=== PATIENT | female | born 1985 | race Caucasian/White ===

== ENCOUNTER 2020-01-20 14:14 | Emergency (ER) | payer MEDICAID ==
--- NOTE | 2020-01-20 14:26 | ERPHSYRPT ---
- History of Present Illness Time Seen by Provider: 01/20/20 14:26 Source: patient Exam Limitations: no limitations Physician History: This is a right-handed 34-year-old white female who for 2 years has had intermittent bilateral wrist and hand cramping. What is different for her is that in the last several weeks she has had bilateral hand numbness digits 1 2 and 3. Patient denies any repetitive work of any kind. Patient denies any trauma. She is had no strokelike symptoms. Severity: mild Modifying Factors: Improves With: movement Associated Symptoms: denies symptoms Allergies/Adverse Reactions: No Known Drug Allergies Allergy (Unverified 01/20/20 14:34) Travel Risk - International Travel Have you traveled outside of the country in past 3 weeks: No - Coronavirus Screening Are you exhibiting any of the following symptoms?: No Close contact with a COVID-19 positive Pt in past 14-21 Days: No - Review of Systems Constitutional: No Symptoms Eyes: No Symptoms Ears, Nose, & Throat: No Symptoms Respiratory: No Symptoms Cardiac: No Symptoms Abdominal/Gastrointestinal: No Symptoms Genitourinary Symptoms: No Symptoms Musculoskeletal: No Injury Skin: No Symptoms Neurological: Other (Bilateral hand digits 1 2 and 3 numbness), No Gait Changes, No Headache Psychological: No Symptoms Endocrine: No Symptoms Hematologic/Lymphatic: No Symptoms Immunological/Allergic: No Symptoms All Other Systems: Reviewed and Negative - Past Medical History Pertinent Past Medical History: Yes Neurological History: No Pertinent History ENT History: No Pertinent History Cardiac History: No Pertinent History Respiratory History: No Pertinent History Endocrine Medical History: No Pertinent History Musculoskeletal History: No Pertinent History GI Medical History: No Pertinent History History: No Pertinent History Psycho-Social History: No Pertinent History Female Reproductive Disorders: No Pertinent History - Past Surgical History Neuro Surgical History: No Pertinent History Cardiac: No Pertinent History Respiratory: No Pertinent History Gastrointestinal: No Pertinent History Genitourinary: No Pertinent History Musculoskeletal: No Pertinent History Female Surgical History: No Pertinent History - Nursing Vital Signs Nursing Vital Signs: Initial Vital Signs Temperature 98.5 F 01/20/20 14:26 Pulse Rate 102 H 01/20/20 14:26 Respiratory Rate 18 01/20/20 14:26 Blood Pressure 123/90 01/20/20 14:26 O2 Sat by Pulse Oximetry 98 01/20/20 14:26 Pain Scale Pain Intensity 0 - Physical Exam General Appearance: no apparent distress, alert, anxiety Eye Exam: PERRL/EOMI, eyes nml inspection Ears, Nose, Throat Exam: normal ENT inspection, moist mucous membranes Neck Exam: normal inspection, non-tender, supple, full range of motion Respiratory Exam: normal breath sounds, lungs clear, airway intact, No chest tenderness, No respiratory distress Cardiovascular Exam: normal peripheral pulses Gastrointestinal/Abdomen Exam: No tenderness Pelvic Exam: not done Rectal Exam: not done Back Exam: normal inspection, normal range of motion, No CVA tenderness, No vertebral tenderness Extremity Exam: normal inspection, normal range of motion, pelvis stable Neurologic Exam: alert, oriented x 3, cooperative, wholesale representative II-XII nml as tested, normal mood/affect, nml cerebellar function, nml station & gait, sensation nml Skin Exam: normal color, warm, dry Lymphatic Exam: No adenopathy SpO2 Interpretation: normal O2 Delivery: Room Air Ordered Tests: Active Orders 24 hr Category Date Time Status BMP Stat Lab 01/20/20 14:30 Completed Erythrocyte Sedimentation Rate Stat Lab 01/20/20 14:30 Received MAGNESIUM Stat Lab 01/20/20 14:30 Completed Lab/Rad Data: Laboratory Result Diagrams 01/20/20 14:30 Laboratory Results 01/20/20 Range/Units 14:30 Sodium 141 (137-145) mmol/L Potassium 4.1 (3.5-5.1) mmol/L Chloride 108 H (98-107) mmol/L Carbon Dioxide 28 (22-30) mmol/L Anion Gap 9.1 (5-15) MEQ/L BUN 11 (7-17) mg/dL Creatinine 0.67 (0.52-1.04) mg/dL Estimated GFR > 60.0 ML/MIN Glucose 100 (74-106) mg/dL Calcium 9.4 (8.4-10.2) mg/dL Magnesium 2.1 (1.6-2.3) mg/dL - Progress Progress: unchanged, re-examined Counseled pt/family regarding: lab results, diagnosis, need for follow-up - Departure Departure Disposition: Home Clinical Impression: Bilateral hand numbness Condition: Stable Critical Care Time: No Additional Instructions: Take medication as prescribed. May add Tylenol to pain regimen. Follow-up with primary care physician for further management and evaluation. Prescriptions: Cyclobenzaprine HCl 10 mg [Cyclobenzaprine 10 MG] 10 mg PO TID #10 tablet Prednisone 10 mg [Deltasone 10 mg] 10 mg PO TID #12 tablet
[2020-01-20 14:33] VITALS: O2SAT 98
[2020-01-20 15:14] LABS: ANION GAP 9.1 MEQ/L (5-15); BLOOD UREA NITROGEN 11 mg/dL (7-17); CHLORIDE 108 mmol/L (98-107); Calcium 9.4 mg/dL (8.4-10.2); Carbon Dioxide 28 mmol/L (22-30); Creatinine 1 0.67 mg/dL (0.52-1.04); Glucose 100 mg/dL (74-106); MAGNESIUM 2.1 mg/dL (1.6-2.3); Potassium 4.1 mmol/L (3.5-5.1); SODIUM 141 mmol/L (137-145)
[2020-01-20 15:22] VITALS: BP 128/86; PULSE 84
== END 2020-01-20 15:47 | disposition home or self-care (01) ==
LOC: ED 14:14
DX: R20.0 Anesthesia of skin (principal)
CPT/HCPCS: 36000; 36415; 80048; 83735; 85652; 99284

== ENCOUNTER 2020-04-16 16:50 | Emergency (ER) | payer OTHER ==
[2020-04-16] MEDS ORDERED: TORAdol 30 mg Injection IM ONE (17:19)
--- NOTE | 2020-04-16 17:24 | ERPHSYRPT ---
- History of Present Illness Time Seen by Provider: 04/16/20 17:10 Source: patient Exam Limitations: no limitations Patient Subjective Stated Complaint: pt reports she fell in a hole earlier today. reports left ankle pain and swelling. denies any other injury or accident. pt reports she cannot take any narcotic medication. Triage Nursing Assessment: pt is aox3, pupils perrl, afebrile, resps easy and non labored, cap refill < 3 seconds, radial pulses strong and equal, pt skin pink warm dry. mild swelling noted to the distal left ankle, skin is intact. ROM sensation intact. pt ambulatory to cot with slow limping gait. Physician History: 35 years old female presented in the ER with chief complaint of left ankle pain and swelling after she accidentally stepped in a small hole and twisted her left ankle earlier today. Since then she is having gradually increasing sharp shooting moderate intensity pain which is aggravated with movements and ambulation. She can still walk on it. No injury anywhere else. Method of Injury: fell, twisted Occurred: this morning Quality: sharpness Severity of Pain-Max: moderate Severity of Pain-Current: moderate Lower Extremities Pain: ankle: left Modifying Factors: Improves With: immobilization, rest. Worsens With: movement Associated Symptoms: popping sensation Allergies/Adverse Reactions: No Known Drug Allergies Allergy (Verified 04/16/20 17:16) Hx Tetanus, Diphtheria Vaccination/Date Given: Yes Hx Influenza Vaccination/Date Given: No Hx Pneumococcal Vaccination/Date Given: No Immunizations Up to Date: Yes Travel Risk - International Travel Have you traveled outside of the country in past 3 weeks: No - Coronavirus Screening Are you exhibiting any of the following symptoms?: No Close contact with a COVID-19 positive Pt in past 14-21 Days: No - Review of Systems Constitutional: No Symptoms Ears, Nose, & Throat: No Symptoms Respiratory: No Symptoms Cardiac: No Symptoms Abdominal/Gastrointestinal: No Symptoms Musculoskeletal: Joint Pain, Joint Swelling Skin: No Symptoms Neurological: No Symptoms Psychological: No Symptoms Endocrine: No Symptoms Hematologic/Lymphatic: No Symptoms - Past Medical History Pertinent Past Medical History: Yes Neurological History: No Pertinent History ENT History: No Pertinent History Cardiac History: No Pertinent History Respiratory History: No Pertinent History Endocrine Medical History: No Pertinent History Musculoskeletal History: No Pertinent History GI Medical History: No Pertinent History History: No Pertinent History Psycho-Social History: No Pertinent History Female Reproductive Disorders: No Pertinent History - Past Surgical History Past Surgical History: Yes Neuro Surgical History: No Pertinent History Cardiac: No Pertinent History Respiratory: No Pertinent History Gastrointestinal: No Pertinent History Genitourinary: No Pertinent History Musculoskeletal: No Pertinent History Female Surgical History: Section Other Surgical History: c section x 4 - Social History Smoking Status: Current every day smoker Exposure to second hand smoke: No Drug Use: none Patient Lives Alone: No - Female History Hx Last Menstrual Period: 04/15/20 Hx Now: (UNKN) - Nursing Vital Signs Nursing Vital Signs: Initial Vital Signs Temperature 99.1 F 04/16/20 17:07 Pulse Rate 90 04/16/20 17:07 Respiratory Rate 20 04/16/20 17:07 Blood Pressure 145/95 04/16/20 17:07 O2 Sat by Pulse Oximetry 97 04/16/20 17:07 Pain Scale Pain Intensity 4 - Physical Exam General Appearance: no apparent distress, alert Neck Exam: normal inspection, full range of motion Cardiovascular/Respiratory Exam: normal breath sounds, regular rate/rhythm Back Exam: normal inspection Legs Exam: bilateral leg: non-tender, normal inspection, normal range of motion, no evidence of injury Knees Exam: bilateral knee: non-tender, normal inspection, normal range of motion, no evidence of injury Ankle Exam: right ankle: non-tender, normal inspection, normal range of motion, no evidence of injury, left ankle: bone tenderness (Lateral malleolus), limited range of motion, pain, soft tissue tenderness, swelling Foot Exam: bilateral foot: non-tender, normal inspection, normal range of motion, no evidence of injury Neuro/Tendon Exam: normal sensation, normal motor functions, normal tendon functions Mental Status Exam: alert, oriented x 3, cooperative Skin Exam: normal color SpO2 Interpretation: normal SpO2: 97 O2 Delivery: Room Air Ordered Tests: Active Orders 24 hr Category Date Time Status ANKLE (3 VIEWS) Stat Exams 04/16/20 17:26 Taken Medication Summary Discontinued Medications Generic Name Dose Route Start Last Admin Trade Name Freq PRN Reason Stop Dose Admin Ketorolac Tromethamine 30 mg 04/16/20 17:19 04/16/20 17:31 Toradol 30 Mg Injection IM 04/16/20 17:20 30 mg STAT ONE Administration Ketorolac Tromethamine Confirm 10/11/20 17:30 Toradol 30 Mg Injection Administered 04/16/20 17:31 Dose 30 mg .ROUTE .STK-MED ONE - Progress Progress: improved, pain not gone completely Progress Note: She is given Toradol for symptomatic relief. X-rays ruled out fracture dis location. I believe patient has a ankle sprain, given Aircast, ibuprofen to take as needed and outpatient Ortho clinic/podiatry follow-up. Discussed signs symptoms of worsening needing return to ER which she seemed understanding. Stable for discharge. Counseled pt/family regarding: lab results, diagnosis, need for follow-up - Departure Departure Disposition: Home Clinical Impression: Left ankle sprain Qualifiers: Encounter type: initial encounter Involved ligament of ankle: unspecified ligament Qualified Code(s): S93.402A - Sprain of unspecified ligament of left ankle, initial encounter Condition: Stable Critical Care Time: No Referrals: DOCTOR,NO FAMILY [Primary Care Provider] - ANNE SUTTON [employer] [NON-STAFF PHY W/O PRIVILEGES] - (Call for appointment tomorrow morning with podiatry/Ortho clinic) Instructions: Ankle Sprain (DC), Ankle Fracture (DC) Additional Instructions: Weightbearing as tolerated. Take Tylenol/ibuprofen as needed. Follow-up with Ortho clinic/podiatry for reevaluation. Return to ER for worsening pain swelling or difficulty ambulation. Prescriptions: Ibuprofen 600 mg PO Q6HPRN PRN 10 Days #20 tablet PRN Reason: Pain
[2020-04-16] MEDS ORDERED: TORAdol 30 mg Injection ONE (17:30)
[2020-04-16 18:03] VITALS: BP 138/97; PULSE 70; O2SAT 98
--- NOTE | 2020-04-17 08:59 | XRAY ---
Indication: Pain following injury. Comparison: None 3 view left ankle demonstrates tiny plantar heel spur. No other bony, articular, or soft tissue abnormalities.
== END 2020-04-16 18:04 | disposition home or self-care (01) ==
LOC: ED 16:50
DX: S93.402A Sprain of unspecified ligament of left ankle, initial encounter (principal); W17.2XXA Fall into hole, initial encounter; Y93.9 Activity, unspecified; Y92.9 Unspecified place or not applicable; W52.XXXA Crushed, pushed or stepped on by crowd or human stampede, initial encounter; M25.572 Pain in left ankle and joints of left foot
CPT/HCPCS: 73610; 96372; 99284; J1885

== ENCOUNTER 2020-06-19 15:22 | Emergency (ER) | payer OTHER ==
[2020-06-19 16:23] LABS: Absolute Neutrophil Ct (ANC) 3.17 (1.4-6.9); BASOPHIL % 0.3 % (0.0-0.4); Basophil (Absolute #) 0.02 (0-0.4); Eosinophil % 1.6 % (0.00-5.0); Hematocrit 43.6 % (35-47); Hemoglobin 14.4 gm/dl (12.0-16.0); Lymphocytes % 40.3 % (24.0-44.0); Mean Cell Volume 91.4 fl (78-100); Mean Corpuscular Hemoglobin 30.2 pg (26-32); Mean Platelet Volume 11.5 fl (7.5-11.0); Monocyte (Absolute #) 0.41 (0.0-1.3); Monocytes % 6.6 % (0.0-12.0); Neutrophil % 51.2 % (36.0-66.0); Platelet Count 221 K/mm3 (150-450); Red Blood Count 4.77 M/mm3 (4.1-5.4); Red Cell Distribution Width 13.3 % (11.5-14.0); White Blood Count 6.2 K/mm3 (4.0-10.5)
[2020-06-19 16:32] LABS: Appearance CLEAR (CLEAR); Bilirubin NEGATIVE (NEGATIVE); Epithelial Cells RARE /HPF (FEW); Glucose NEGATIVE (NEGATIVE); Ketones TRACE (NEGATIVE); Mucus SLIGHT /HPF (NEGATIVE); Protein,Urine Dip NEGATIVE (Negative); RBC NEGATIVE Ery/ul (0-5); Specific Gravity 1.025 (1.005-1.025); Urobilinogen 0.2 mg/dL (0-1); WBC 0-2 /HPF (0-5)
[2020-06-19 16:33] LABS: Dipstick done @ ? MAIN LAB; Nitrite NEGATIVE (NEGATIVE)
[2020-06-19 16:42] LABS: ALBUMIN 4.6 g/dL (3.5-5.0); ALKALINE PHOSPHATASE 77 U/L (38-126); ANION GAP 11.5 MEQ/L (5-15); BLOOD UREA NITROGEN 16 mg/dL (7-17); CHLORIDE 106 mmol/L (98-107); Calcium 9.4 mg/dL (8.4-10.2); Carbon Dioxide 28 mmol/L (22-30); Creatinine 1 0.91 mg/dL (0.52-1.04); EST GLOMERULAR FILTRATION RATE > 60.0 ML/MIN; Glucose 90 mg/dL (74-106); MAGNESIUM 1.9 mg/dL (1.6-2.3); Potassium 3.8 mmol/L (3.5-5.1); SGOT/AST 22 U/L (14-36); SGPT/ALT 25 U/L (0-35); SODIUM 142 mmol/L (137-145); Total Protein 8.1 g/dL (6.3-8.2)
--- NOTE | 2020-06-19 17:02 | ERPHSYRPT ---
- History of Present Illness Time Seen by Provider: 06/19/20 15:45 Source: patient Exam Limitations: no limitations Patient Subjective Stated Complaint: pt reports covid symptoms starting 06/10/20, pt reports sore throat, diarrhea, chest heaviness, shortness of breath and no taste and smell. pt states she doesnt feel like she is getting better. pt reports she lives at a womens house and another resident is also positive. Triage Nursing Assessment: pt is aox3, pt appears is no distress at this time, pt ambulatory to cot with no difficulties, pt afebrile, resps easy and non labored, radial pulses strong and equal, cap refill < 3 seconds, pt skin pink warm dry. Physician History: Patient is a 35-year-old female presents to our ED for evaluation of chest pressure. Patient advises she is Covid positive. Patient has had Covid symptoms well for 08/11/2019. Patient reports sore throat, diarrhea, chest heaviness, shortness of breath, decreased taste smell. Patient states that her symptoms have been ongoing for over a week and her symptoms are not better. Patient concerned because she has a friend that is also Covid positive but is improving. No fever. No trauma. No diaphoresis. No nausea or vomiting. Sy mptoms are mild to moderate in intensity. No specific worsening or improving factors. Patient voices no other complaints or concerns at this time. Timing/Duration: week(s) Severity: moderate Modifying Factors: Improves With: nothing Associated Symptoms: shortness of breath, chest pain, No nausea, No abdominal pain, No diaphoresis, No cough, No fever, No headaches, No loss of appetite Allergies/Adverse Reactions: No Known Drug Allergies Allergy (Verified 06/19/20 15:49) Hx Tetanus, Diphtheria Vaccination/Date Given: Yes Hx Influenza Vaccination/Date Given: No Hx Pneumococcal Vaccination/Date Given: No Immunizations Up to Date: Yes Travel Risk - International Travel Have you traveled outside of the country in past 3 weeks: No - Coronavirus Screening Are you exhibiting any of the following symptoms?: Yes Symptoms: Shortness of Breath, Vomiting/Diarrhea, Loss of Taste or Smell - Review of Systems Constitutional: No Symptoms, No Fever, No Chills Eyes: No Symptoms Ears, Nose, & Throat: No Symptoms Respiratory: No Symptoms, No Cough, No Dyspnea Cardiac: No Symptoms, No Chest Pain, No Edema, No Syncope Abdominal/Gastrointestinal: No Symptoms, No Abdominal Pain, No Nausea, No Vomiting, No Diarrhea Genitourinary Symptoms: No Symptoms, No Dysuria Musculoskeletal: No Symptoms, No Back Pain, No Neck Pain Skin: No Symptoms, No Rash Neurological: No Symptoms, No Dizziness, No Focal Weakness, No Sensory Changes Psychological: No Symptoms Endocrine: No Symptoms Hematologic/Lymphatic: No Symptoms Immunological/Allergic: No Symptoms All Other Systems: Reviewed and Negative - Past Medical History Pertinent Past Medical History: Yes Neurological History: No Pertinent History ENT History: No Pertinent History Cardiac History: No Pertinent History Respiratory History: Asthma, Bronchitis Endocrine Medical History: No Pertinent History Musculoskeletal History: No Pertinent History GI Medical History: No Pertinent History History: No Pertinent History Psycho-Social History: No Pertinent History Female Reproductive Disorders: No Pertinent History - Past Surgical History Past Surgical History: Yes Neuro Surgical History: No Pertinent History Cardiac: No Pertinent History Respiratory: No Pertinent History Gastrointestinal: No Pertinent History Genitourinary: No Pertinent History Musculoskeletal: No Pertinent History Female Surgical History: Section, Tubal Ligation Other Surgical History: c section x 4 - Social History Smoking Status: Light tobacco smoker Exposure to second hand smoke: No Drug Use: none Patient Lives Alone: No - Female History Hx Last Menstrual Period: 06/06/20 Hx Now: No - Nursing Vital Signs Nursing Vital Signs: Initial Vital Signs Temperature 98.7 F 06/19/20 15:39 Pulse Rate 87 06/19/20 15:39 Respiratory Rate 20 06/19/20 15:39 Blood Pressure 107/73 06/19/20 15:39 O2 Sat by Pulse Oximetry 97 06/19/20 15:39 Pain Scale Pain Intensity 0 - Physical Exam General Appearance: no apparent distress, alert Eye Exam: PERRL/EOMI, eyes nml inspection Ears, Nose, Throat Exam: normal ENT inspection, TMs normal, pharynx normal, moist mucous membranes Neck Exam: normal inspection, non-tender, supple, full range of motion Respiratory Exam: normal breath sounds, lungs clear, No respiratory distress Cardiovascular Exam: regular rate/rhythm, normal heart sounds, normal peripheral pulses Gastrointestinal/Abdomen Exam: soft, normal bowel sounds, No tenderness, No mass Back Exam: normal inspection, normal range of motion, No CVA tenderness, No vertebral tenderness Extremity Exam: normal inspection, normal range of motion, pelvis stable Neurologic Exam: alert, oriented x 3, cooperative, normal mood/affect, nml cerebellar function, nml station & gait, sensation nml, No motor deficits Skin Exam: normal color, warm, dry, No rash Lymphatic Exam: No adenopathy SpO2 Interpretation: normal SpO2: 98 O2 Delivery: Room Air - Course Nursing assessment & vital signs reviewed: Yes EKG Interpreted by Me: RATE (74), Sinus Rhythm, NORMAL AXIS, NORMAL INTERVALS - Radiology Exams Chest X-ray Interpretation: Interpreted by me - CT Exams Chest CT Interpretation: Tele-radiologist Report (Negative for PE. No acute findings. Incidental old granulomatous disease. Fatty liver. 13.8 cm splenomegaly.) Ordered Tests: Active Orders 24 hr Category Date Time Status Admission Liaison STAT Care 06/19/20 16:07 Active EKG-ER Only STAT Care 06/19/20 16:06 Active IV Insertion STAT Care 06/19/20 16:06 Active Pulse Oximetry (ED) STAT Care 06/19/20 16:06 Active CHEST 1 VIEW (PORTABLE) Stat Exams 06/19/20 16:07 Completed CHEST WITH CONTRAST [CT] Stat Exams 06/19/20 16:51 Taken CBC W DIFF Stat Lab 06/19/20 16:15 Completed CMP Stat Lab 06/19/20 16:15 Completed D-DIMER QUANTITATIVE Stat Lab 06/19/20 16:15 Completed HCG,QUALITATIVE URINE Stat Lab 06/19/20 16:09 Completed MAGNESIUM Stat Lab 06/19/20 16:15 Completed NT PRO BNP Stat Lab 06/19/20 16:15 Completed TROPONIN Q3H Lab 06/19/20 16:15 Completed TROPONIN Q3H Lab 06/19/20 18:31 Received TROPONIN Q3H Lab 06/19/20 22:15 Ordered TROPONIN Q3H Lab 06/20/20 01:15 Ordered TROPONIN Q3H Lab 06/20/20 04:15 Ordered Lab/Rad Data: Laboratory Result Diagrams 06/19/20 16:15 06/19/20 16:15 Laboratory Results 06/19/20 06/19/20 06/19/20 Range/Units 16:15 16:15 16:15 WBC (4.0-10.5) K/mm3 RBC (4.1-5.4) M/mm3 Hgb (12.0-16.0) gm/dl Hct (35-47) % MCV (78-100) fl MCH (26-32) pg MCHC (32-36) g/dl RDW (11.5-14.0) % Plt Count (150-450) K/mm3 MPV (7.5-11.0) fl Gran % (36.0-66.0) % Eos # (Auto) (0-0.5) Absolute Lymphs (auto) (1.0-4.6) Absolute Monos (auto) (0.0-1.3) Lymphocytes % (24.0-44.0) % Monocytes % (0.0-12.0) % Eosinophils % (0.00-5.0) % Basophils % (0.0-0.4) % Absolute Granulocytes (1.4-6.9) Basophils # (0-0.4) D-Dimer 504 H* (215-500) ng/mL Sodium 142 (137-145) mmol/L Potassium 3.8 (3.5-5.1) mmol/L Chloride 106 (98-107) mmol/L Carbon Dioxide 28 (22-30) mmol/L Anion Gap 11.5 (5-15) MEQ/L BUN 16 (7-17) mg/dL Creatinine 0.91 (0.52-1.04) mg/dL Estimated GFR > 60.0 ML/MIN Glucose 90 (74-106) mg/dL Calcium 9.4 (8.4-10.2) mg/dL Magnesium 1.9 (1.6-2.3) mg/dL Total Bilirubin 0.40 (0.2-1.3) mg/dL AST 22 (14-36) U/L ALT 25 (0-35) U/L Alkaline Phosphatase 77 (38-126) U/L Troponin I < 0.012 (0.000-0.034) ng/mL NT-Pro-B Natriuret Pep 40.9 (0-450) pg/mL Serum Total Protein 8.1 (6.3-8.2) g/dL Albumin 4.6 (3.5-5.0) g/dL Urinalys Dipstick Clnc Urine Color (YELLOW) Urine Appearance (CLEAR) Urine pH (5-6) Ur Specific [place] (1.005-1.025) POC Urine Protein Conf (Negative) Urine Ketones (NEGATIVE) Urine Nitrite (NEGATIVE) Urine Bilirubin (NEGATIVE) Urine Urobilinogen (0-1) mg/dL Urine Leukocytes (NEGATIVE) Urine WBC (Auto) (0-5) /HPF Urine RBC (Auto) (0-2) /HPF U Epithel Cells (Auto) (FEW) /HPF Urine Bacteria (Auto) (NEGATIVE) /HPF Urine RBC (0-5) Michele/ul Urine Mucus (Auto) (NEGATIVE) /HPF Ur Culture Indicated? Urine Glucose (NEGATIVE) mg/dL Urine HCG, Qual (Negative) 06/19/20 06/19/20 06/19/20 Range/Units 16:15 16:09 16:09 WBC 6.2 (4.0-10.5) K/mm3 RBC 4.77 (4.1-5.4) M/mm3 Hgb 14.4 (12.0-16.0) gm/dl Hct 43.6 (35-47) % MCV 91.4 (78-100) fl MCH 30.2 (26-32) pg MCHC 33.0 (32-36) g/dl RDW 13.3 (11.5-14.0) % Plt Count 221 (150-450) K/mm3 MPV 11.5 H (7.5-11.0) fl Gran % 51.2 (36.0-66.0) % Eos # (Auto) 0.10 (0-0.5) Absolute Lymphs (auto) 2.50 (1.0-4.6) Absolute Monos (auto) 0.41 (0.0-1.3) Lymphocytes % 40.3 (24.0-44.0) % Monocytes % 6.6 (0.0-12.0) % Eosinophils % 1.6 (0.00-5.0) % Basophils % 0.3 (0.0-0.4) % Absolute Granulocytes 3.17 (1.4-6.9) Basophils # 0.02 (0-0.4) D-Dimer (215-500) ng/mL Sodium (137-145) mmol/L Potassium (3.5-5.1) mmol/L Chloride (98-107) mmol/L Carbon Dioxide (22-30) mmol/L Anion Gap (5-15) MEQ/L BUN (7-17) mg/dL Creatinine (0.52-1.04) mg/dL Estimated GFR ML/MIN Glucose (74-106) mg/dL Calcium (8.4-10.2) mg/dL Magnesium (1.6-2.3) mg/dL Total Bilirubin (0.2-1.3) mg/dL AST (14-36) U/L ALT (0-35) U/L Alkaline Phosphatase (38-126) U/L Troponin I (0.000-0.034) ng/mL NT-Pro-B Natriuret Pep (0-450) pg/mL Serum Total Protein (6.3-8.2) g/dL Albumin (3.5-5.0) g/dL Urinalys Dipstick Clnc MAIN LAB Urine Color YELLOW (YELLOW) Urine Appearance CLEAR (CLEAR) Urine pH 5.0 (5-6) Ur Specific [place] 1.025 (1.005-1.025) POC Urine Protein Conf NEGATIVE (Negative) Urine Ketones TRACE (NEGATIVE) Urine Nitrite NEGATIVE (NEGATIVE) Urine Bilirubin NEGATIVE (NEGATIVE) Urine Urobilinogen 0.2 (0-1) mg/dL Urine Leukocytes NEGATIVE (NEGATIVE) Urine WBC (Auto) 0-2 (0-5) /HPF Urine RBC (Auto) 3-5 (0-2) /HPF U Epithel Cells (Auto) RARE (FEW) /HPF Urine Bacteria (Auto) NONE (NEGATIVE) /HPF Urine RBC NEGATIVE (0-5) Michele/ul Urine Mucus (Auto) SLIGHT (NEGATIVE) /HPF Ur Culture Indicated? NO Urine Glucose NEGATIVE (NEGATIVE) mg/dL Urine HCG, Qual NEGATIVE (Negative) - Progress Progress: improved Progress Note: 06/19/20 18:37 Patient reassessed. She is well. Vital stable. CT negative for PE. Troponin negative x2. Vital stable. Mother called our ED requesting that we provide patient with an inhaler. No indication for inhaler at this time however we will comply with mother's request. Patient agrees to follow-up with her primary care doctor within 48 hours for reevaluation. Patient voices no other complaints or concerns at this time. Patient requesting discharge. Will discharge at this time. Counseled pt/family regarding: lab results, diagnosis, need for follow-up, rad results - Departure Departure Disposition: Home Clinical Impression: Granulomatous disease, Hepatic steatosis, Splenomegaly, COVID-19 Condition: Stable Critical Care Time: No Referrals: DOCTOR,NO FAMILY [Primary Care Provider] - JAVIER JONES MD [ACTIVE STAFF] - Additional Instructions: Discharge/Care Plan SAMRA DYSON was seen on 06/19/20 in the Emergency Room. The patient was counseled regarding Diagnosis,Lab results, Imaging studies, need for follow up and when to return to the Emergency Room. Prescriptions given: Discharge Note I have spoken with the patient and/or caregivers. I have explained the patient's condition, diagnosis and treatment plan based on the information available to me at this time. I have answered the patient's and/or caregiver's questions and addressed any concerns. The patient and/or caregivers have as good understanding of the patient's diagnosis, condition and treatment plan as can be expected at this point. The vital signs have been stable. The patient's condition is stable and appropriate for discharge from the emergency department. The patient will pursue further outpatient evaluation with the primary care physician or other designated or consulting physician as outlined in the discharge instructions. The patient and/or caregivers are agreeable to this plan of care and follow-up instructions have been explained in detail. The patient and/or caregivers have received these instruction. The patient/and or caregivers are aware that any significant change in condition or worsening of symptoms should prompt an immediate return to this or the closest emergency department or call 911. Prescriptions: Albuterol 8 gm Mdi Hfa [Ventolin Hfa MDI] 8 gm IH Q4H #1 [email or web address]
--- NOTE | 2020-06-19 17:13 | XRAY ---
Exam: AP upright portable chest film from 06/19/2020. Comparison: None. Indication: 35-year-old female with chest pain, shortness of breath, positive for Covid-19, smoker. Findings: The transverse heart size is normal. The eric and mediastinal structures appear unremarkable. There is a prominent epicardial fat pad at the right cardiophrenic angle. There is minimal elevation/eventration of the right hemidiaphragm. A calcified granuloma is seen within the right lung apex. The remainder of the lung ellis appears clear. Pulmonary vascularity is normal. The level of inspiration is satisfactory. No pneumothorax or pleural effusion is seen. No acute osseous process is seen. Impression: 1. No acute cardiopulmonary disease is seen. 2. Some incidental findings are seen, as discussed above.
[2020-06-19 17:33] LABS: NT PRO BNP 40.9 pg/mL (0-450)
[2020-06-19 19:06] VITALS: BP 126/86; PULSE 88; O2SAT 97
--- NOTE | 2020-06-20 08:47 | XRAY ---
Indication: Short of breath and chest pain. Elevated d-dimer. Multiple contiguous axial images obtained through the chest using 80 cc Isovue 370 contrast and PE protocol. Comparison: None There is good opacification of the pulmonary arteries to include the lobar and segmental branches. No pulmonary embolus. Heart is not enlarged. Aorta is normal in course and caliber. Small mediastinal and right hilar calcified nodes. No pathologic mediastinal/hilar lymphadenopathy. Lungs inflated with right upper lobe peripheral calcified granuloma. No suspicious pulmonary mass, infiltrate, or effusion. Bony thorax intact. Limited upper abdomen demonstrates mild diffuse fatty liver, 13.8 cm splenomegaly, and splenic calcified granulomas. Impression: 1. Negative pulmonary embolus. No acute cardiopulmonary abnormalities. 2. Incidental fatty liver, splenomegaly, and old granulomatous disease.
== END 2020-06-19 19:03 | disposition home or self-care (01) ==
LOC: ED 15:22
DX: D71 Functional disorders of polymorphonuclear neutrophils (principal); K76.0 Fatty (change of) liver, not elsewhere classified; R16.1 Splenomegaly, not elsewhere classified; U07.1 COVID-19; Z72.0 Tobacco use
CPT/HCPCS: 36000; 36415; 71045; 71260; 80053; 81015; 83735; 83880; 84484; 84703; 85025; 85379; 93005; 93041; 94760; 99284

== ENCOUNTER 2020-07-17 10:35 | Emergency (ER) | payer OTHER ==
[2020-07-17 10:50] VITALS: O2SAT 97
--- NOTE | 2020-07-17 11:00 | ERPHSYRPT ---
- History of Present Illness Time Seen by Provider: 07/17/20 10:50 Source: patient Exam Limitations: no limitations Patient Subjective Stated Complaint: Pt states "I was positive for covid and off [facility] on the June. I started to cough yesterday and I ache. I need to know if I have pneumonia." Triage Nursing Assessment: Pt presented alert and oriented X 3, skin pwd Pt ambulates with an upright steady gait, able to speak in clear full sentences. Pt in no apparent respiratory distress. Pt has intermittant cough. Physician History: Patient is a 35-year-old female presents to our ED for evaluation of possible pneumonia. Patient states she has been coughing and experiencing any aches and subjective fever. Patient advises that she tested positive for Covid 2 weeks ago. Patient had been feeling well until yesterday when she developed her cough. Symptoms are mild to moderate in intensity. No specific worsening or improving factors. No associated chest pain or shortness of breath. No nausea vomiting or diaphoresis. No rash. No trauma. Patient afebrile in our ED. Vitals are within normal limits. Patient is otherwise healthy. She voices no other complaints or concerns at this time. Timing/Duration: yesterday Severity: mild Modifying Factors: Improves With: nothing Associated Symptoms: denies symptoms Allergies/Adverse Reactions: cephalexin [From Keflex] Allergy (Intermediate, Verified 07/17/20 10:50) Hives Hx Tetanus, Diphtheria Vaccination/Date Given: No Hx Influenza Vaccination/Date Given: No Hx Pneumococcal Vaccination/Date Given: No Immunizations Up to Date: Yes Travel Risk - International Travel Have you traveled outside of the country in past 3 weeks: No - Coronavirus Screening Are you exhibiting any of the following symptoms?: Yes Symptoms: Cough: New Onset Close contact with a COVID-19 positive Pt in past 14-21 Days: Yes - Review of Systems Constitutional: No Symptoms, No Fever, No Chills Eyes: No Symptoms Ears, Nose, & Throat: No Symptoms Respiratory: No Symptoms, No Cough, No Dyspnea Cardiac: No Symptoms, No Chest Pain, No Edema, No Syncope Abdominal/Gastrointestinal: No Symptoms, No Abdominal Pain, No Nausea, No Vomiting, No Diarrhea Genitourinary Symptoms: No Symptoms, No Dysuria Musculoskeletal: No Symptoms, No Back Pain, No Neck Pain Skin: No Rash Neurological: No Symptoms, No Dizziness, No Focal Weakness, No Sensory Changes Psychological: No Symptoms Endocrine: No Symptoms Hematologic/Lymphatic: No Symptoms Immunological/Allergic: No Symptoms All Other Systems: Reviewed and Negative - Past Medical History Pertinent Past Medical History: Yes Neurological History: No Pertinent History ENT History: No Pertinent History Cardiac History: No Pertinent History Respiratory History: Asthma, Bronchitis Endocrine Medical History: No Pertinent History Musculoskeletal History: No Pertinent History GI Medical History: No Pertinent History History: No Pertinent History Psycho-Social History: No Pertinent History Female Reproductive Disorders: No Pertinent History - Past Surgical History Past Surgical History: Yes Neuro Surgical History: No Pertinent History Cardiac: No Pertinent History Respiratory: No Pertinent History Gastrointestinal: No Pertinent History Genitourinary: No Pertinent History Musculoskeletal: No Pertinent History Female Surgical History: Section, Tubal Ligation Other Surgical History: c section x 4 - Social History Smoking Status: Former smoker Exposure to second hand smoke: No Drug Use: marijuana Patient Lives Alone: No - Female History Hx Last Menstrual Period: 06/30/2020 Hx Now: No - Nursing Vital Signs Nursing Vital Signs: Initial Vital Signs Temperature 99.0 F 07/17/20 10:44 Pulse Rate 98 H 07/17/20 10:44 Respiratory Rate 22 07/17/20 10:44 Blood Pressure 142/82 07/17/20 10:44 O2 Sat by Pulse Oximetry 97 07/17/20 10:44 Pain Scale Pain Intensity 3 - Physical Exam General Appearance: no apparent distress, alert Eye Exam: PERRL/EOMI, eyes nml inspection Ears, Nose, Throat Exam: normal ENT inspection, TMs normal, pharynx normal, moist mucous membranes Neck Exam: normal inspection, non-tender, supple, full range of motion Respiratory Exam: normal breath sounds, lungs clear, No respiratory distress Cardiovascular Exam: regular rate/rhythm, normal heart sounds, normal peripheral pulses Gastrointestinal/Abdomen Exam: soft, normal bowel sounds, No tenderness, No mass Back Exam: normal inspection, normal range of motion, No CVA tenderness, No vertebral tenderness Extremity Exam: normal inspection, normal range of motion, pelvis stable Neurologic Exam: alert, oriented x 3, cooperative, normal mood/affect, nml cerebellar function, nml station & gait, sensation nml, No motor deficits Skin Exam: normal color, warm, dry, No rash Lymphatic Exam: No adenopathy SpO2 Interpretation: normal SpO2: 97 O2 Delivery: Room Air - Course Nursing assessment & vital signs reviewed: Yes - Radiology Exams Chest X-ray Interpretation: Teleradiologist Report (Portable chest demonstrates normal heart lungs and bony thorax with incidental right upper lobe calcified granuloma. No new acute findings.) Ordered Tests: Active Orders 24 hr Category Date Time Status CHEST 1 VIEW (PORTABLE) Stat Exams 07/17/20 10:42 Completed - Progress Progress: improved Progress Note: 07/17/20 11:54 Patient reassessed. She states she feels well. No coughing observed in our ED. Chest x-ray demonstrates normal heart lungs and bony thorax with incidental right upper lobe calcified granuloma no new acute findings. Patient has an inhaler at home. No indication for further work-up at this time. Will di scharge home. Patient agrees to follow-up with a primary care doctor within 48 hours for reevaluation. Counseled pt/family regarding: diagnosis, need for follow-up, rad results - Departure Departure Disposition: Home Clinical Impression: Cough, Lung granuloma Condition: Stable Critical Care Time: No Referrals: DOCTOR,NO FAMILY [Primary Care Provider] - ROSCOE SHAVER MD [ACTIVE STAFF] - Additional Instructions: Discharge/Care Plan SAMRA DYSON was seen on 07/17/20 in the Emergency Room. The patient was counseled regarding Diagnosis,Lab results, Imaging studies, need for follow up and when to return to the Emergency Room. Prescriptions given: Discharge Note I have spoken with the patient and/or caregivers. I have explained the patient's condition, diagnosis and treatment plan based on the information available to me at this time. I have answered the patient's and/or caregiver's questions and addressed any concerns. The patient and/or caregivers have as good understanding of the patient's diagnosis, condition and treatment plan as can be expected at this point. The vital signs have been stable. The patient's condition is stable and appropriate for discharge from the emergency department. The patient will pursue further outpatient evaluation with the primary care physician or other designated or consulting physician as outlined in the discharge instructions. The patient and/or caregivers are agreeable to this plan of care and follow-up instructions have been explained in detail. The patient and/or caregivers have received these instruction. The patient/and or caregivers are aware that any significant change in condition or worsening of symptoms shou ld prompt an immediate return to this or the closest emergency department or call 911.
--- NOTE | 2020-07-17 11:53 | XRAY ---
Indication: Chest pain and short of breath. Covid 19 positive 3 weeks ago. Comparison: June 19, 2020. Portable chest again demonstrates normal heart, lungs, and bony thorax with incidental right upper lobe calcified granuloma. No new/acute findings.
[2020-07-17 12:01] VITALS: BP 131/87; PULSE 69
== END 2020-07-17 12:10 | disposition home or self-care (01) ==
LOC: ED 10:35
DX: R05 Cough (principal); U07.1 COVID-19; J84.10 Pulmonary fibrosis, unspecified; F17.200 Nicotine dependence, unspecified, uncomplicated
CPT/HCPCS: 71045; 99283

== ENCOUNTER 2020-09-22 09:33 | Emergency (ER) | payer OTHER ==
[2020-09-22 10:11] VITALS: PULSE 80
--- NOTE | 2020-09-22 10:19 | ERPHSYRPT ---
- History of Present Illness Time Seen by Provider: 09/22/20 09:36 Source: patient Exam Limitations: no limitations Patient Subjective Stated Complaint: Pt states that for 2 days she has been having a fever, cough, body aches, chest pain due to coughing Triage Nursing Assessment: Pt was brought to the ER by a friend, vitals wnl, coughing, lungs clear, small amount of expectorant, rates chest pain as 4/10 due to the coughing, afebrile, doesn't appear to be in any distress Physician History: 35 years old elderly female presented in the ER with chief complaint of generalized body aches, low-grade fever, minimal productive cough since yesterday. Patient reports progressive worsening of cough with clear sputum and because of repeated coughing is having some generalized chest soreness. Denies any shortness of breath. No known sick contact. Did have history of Covid in the past. Timing/Duration: yesterday, gradual onset, worse Cough Quality/Degree: moderate, productive cough, sputum Possible Cause: no prior episodes Modifying Factors: Worsens With: coughing Associated Symptoms: fever, chills, chest pain/soreness, cough, headache, muscle aches, sore throat, No earache, No nasal congestion, No nasal drainage, No shortness of breath, No sinus infection, No wheezing Allergies/Adverse Reactions: cephalexin [From Keflex] Allergy (Intermediate, Verified 09/22/20 10:11) Hives Hx Tetanus, Diphtheria Vaccination/Date Given: No Hx Influenza Vaccination/Date Given: No Hx Pneumococcal Vaccination/Date Given: No Travel Risk - International Travel Have you traveled outside of the country in past 3 weeks: No - Coronavirus Screening Are you exhibiting any of the following symptoms?: Yes Symptoms: Fever, Cough: New Onset, Headaches/Body Aches/Fatigue Close contact with a COVID-19 positive Pt in past 14-21 Days: No - Review of Systems Constitutional: Fever, Chills, Fatigue Eyes: No Symptoms Ears, Nose, & Throat: Throat Pain Respiratory: Cough Cardiac: Chest Pain Abdominal/Gastrointestinal: No Symptoms Genitourinary Symptoms: No Symptoms Musculoskeletal: Myalgias Skin: No Symptoms Neurological: No Symptoms Psychological: No Symptoms Endocrine: No Symptoms Hematologic/Lymphatic: No Symptoms Immunological/Allergic: No Symptoms - Past Medical History Pertinent Past Medical History: Yes Neurological History: No Pertinent History ENT History: No Pertinent History Cardiac History: No Pertinent History Respiratory History: Asthma, Bronchitis Endocrine Medical History: No Pertinent History Musculoskeletal History: No Pertinent History GI Medical History: No Pertinent History History: No Pertinent History Psycho-Social History: No Pertinent History Female Reproductive Disorders: No Pertinent History - Past Surgical History Past Surgical History: Yes Neuro Surgical History: No Pertinent History Cardiac: No Pertinent History Respiratory: No Pertinent History Gastrointestinal: No Pertinent History Genitourinary: No Pertinent History Musculoskeletal: No Pertinent History Female Surgical History: Section, Tubal Ligation Other Surgical History: c section x 4 - Social History Smoking Status: Former smoker Exposure to second hand smoke: No Drug Use: marijuana Patient Lives Alone: No - Female History Hx Last Menstrual Period: 09/22/2020 Hx Now: No - Nursing Vital Signs Nursing Vital Signs: Initial Vital Signs Temperature 98.1 F 09/22/20 10:00 Pulse Rate 80 09/22/20 10:00 Blood Pressure 118/87 09/22/20 10:00 O2 Sat by Pulse Oximetry 97 09/22/20 10:00 Pain Scale Pain Intensity 5 - Physical Exam General Appearance: no apparent distress Eye Exam: PERRL/EOMI, eyes nml inspection Ears, Nose, Throat Exam: pharyngeal erythema Neck Exam: normal inspection, non-tender, supple, full range of motion Respiratory Exam: normal breath sounds, lungs clear Cardiovascular Exam: regular rate/rhythm, normal heart sounds Gastrointestinal/Abdomen Exam: soft, normal bowel sounds, No tenderness Back Exam: normal inspection, normal range of motion Extremity Exam: normal inspection, normal range of motion, pelvis stable Neurologic Exam: alert, oriented x 3, cooperative Skin Exam: normal color SpO2 Interpretation: normal SpO2: 97 O2 Delivery: Room Air Ordered Tests: Active Orders 24 hr Category Date Time Status CHEST 2 VIEWS (PA AND LAT) Stat Exams 09/22/20 10:14 Completed HCG,QUALITATIVE URINE Stat Lab 09/22/20 10:35 Completed INFLUENZA A+B JOANIE Stat Lab 09/22/20 10:30 Completed UA W/RFX UR CULTURE Stat Lab 09/22/20 10:35 Completed Lab/Rad Data: Laboratory Results 09/22/20 09/22/20 09/22/20 Range/Units 10:35 10:35 10:30 Urine Color YELLOW (YELLOW) Urine Appearance CLEAR (CLEAR) Urine pH 5.0 (5-6) Ur Specific Linch 1.012 (1.005-1.025) Urine Protein NEGATIVE (Negative) Urine Ketones NEGATIVE (NEGATIVE) Urine Blood SMALL (0-5) Michele/ul Urine Nitrite NEGATIVE (NEGATIVE) Urine Bilirubin NEGATIVE (NEGATIVE) Urine Urobilinogen NEGATIVE (0-1) mg/dL Ur Leukocyte Esterase NEGATIVE (NEGATIVE) Urine WBC (Auto) NONE (0-5) /HPF Urine RBC (Auto) 0-2 (0-2) /HPF U Epithel Cells (Auto) NONE (FEW) /HPF Urine Bacteria (Auto) NONE (NEGATIVE) /HPF Calcium Oxalate Crystal 0-2 (NEGATIVE) /HPF Amorphous Crystals FEW (NEGATIVE) /HPF Urine Mucus (Auto) SLIGHT (NEGATIVE) /HPF Urine Culture Reflexed NO (NO) Urine Glucose NEGATIVE (NEGATIVE) mg/dL Urine HCG, Qual NEGATIVE (Negative) Influenza Type A Ag (NEGATIVE) Influenza Type B Ag (NEGATIVE) Group A Strep Antibody NOT DETECTED (NEGATIVE) 09/22/20 Range/Units 10:30 Urine Color (YELLOW) Urine Appearance (CLEAR) Urine pH (5-6) Ur Specific Linch (1.005-1.025) Urine Protein (Negative) Urine Ketones (NEGATIVE) Urine Blood (0-5) Michele/ul Urine Nitrite (NEGATIVE) Urine Bilirubin (NEGATIVE) Urine Urobilinogen (0-1) mg/dL Ur Leukocyte Esterase (NEGATIVE) Urine WBC (Auto) (0-5) /HPF Urine RBC (Auto) (0-2) /HPF U Epithel Cells (Auto) (FEW) /HPF Urine Bacteria (Auto) (NEGATIVE) /HPF Calcium Oxalate Crystal (NEGATIVE) /HPF Amorphous Crystals (NEGATIVE) /HPF Urine Mucus (Auto) (NEGATIVE) /HPF Urine Culture Reflexed (NO) Urine Glucose (NEGATIVE) mg/dL Urine HCG, Qual (Negative) Influenza Type A Ag NEGATIVE (NEGATIVE) Influenza Type B Ag NEGATIVE (NEGATIVE) Group A Strep Antibody (NEGATIVE) - Progress Progress: unchanged Air Movement: good Progress Note: 09/22/20 11:38 35 years old is evaluated for cough and fever chills. Negative strep and flu. Chest x-ray negative for any acute cardiopulmonary findings. I believe patient has bronchitis and started on Z-Trevon and steroid. Recommended outpatient follow- up. Do not think patient needs any further work-up and is stable for discharge. Blood Culture(s) Obtained: No Antibiotics given: Yes Counseled pt/family regarding: lab results, diagnosis, need for follow-up, rad results - Departure Departure Disposition: Home Clinical Impression: Acute bronchitis Qualifiers: Bronchitis organism: unspecified organism Qualified Code(s): J20.9 - Acute bronchitis, unspecified Condition: Stable Critical Care Time: No Referrals: DOCTOR,NO FAMILY [Primary Care Provider] - ELIZABETH CRUZ [ACTIVE STAFF] - Follow Up with PCP/3 days Instructions: Cough, Adult (DC) Additional Instructions: Take Tylenol/ibuprofen as needed for fever greater than 100.4/body aches. Use [id number] cough syrup like Robitussin. Follow-up with primary care physician for reevaluation early next week. Return to ER for worsening cough fever chills or if develop shortness of breath. Prescriptions: Prednisone 20 mg [Deltasone 20 mg] 60 mg PO DAILY 5 Days #15 tablet Azithromycin 250 mg [Zithromax 250 MG TABLET] 250 mg PO ZPACK #6 tablet
[2020-09-22 10:45] LABS: Amourphous Crystal FEW /HPF (NEGATIVE); Appearance CLEAR (CLEAR); Bilirubin NEGATIVE (NEGATIVE); Blood SMALL Ery/ul (0-5); Calcium Oxalate Crystals 0-2 /HPF (NEGATIVE); Glucose NEGATIVE (NEGATIVE); Ketones NEGATIVE (NEGATIVE); Leukocyte Esterase NEGATIVE (NEGATIVE); Mucus SLIGHT /HPF (NEGATIVE); Nitrite NEGATIVE (NEGATIVE); Protein,Urine Dip NEGATIVE (Negative); RBC 0-2 /HPF (0-2); Specific Gravity 1.012 (1.005-1.025); Urobilinogen NEGATIVE mg/dL (0-1)
[2020-09-22 11:06] LABS: INFLUENZA A NEGATIVE (NEGATIVE); INFLUENZA B NEGATIVE (NEGATIVE)
--- NOTE | 2020-09-22 11:25 | XRAY ---
Indication: Fever and cough. Covid 19 infection June 2020. Comparison: July 17, 2020. PA/lateral chest again demonstrates normal heart, lungs, and bony thorax with incidental calcified granulomas and prominent right epicardiac fat.
[2020-09-22 12:25] VITALS: BP 120/90
[2020-09-22 16:01] VITALS: O2SAT 97
== END 2020-09-22 12:00 | disposition home or self-care (01) ==
LOC: ED 09:33
DX: J20.9 Acute bronchitis, unspecified (principal)
CPT/HCPCS: 71046; 81001; 84703; 87400; 87651; 99284